=== PATIENT | female | born 1950 | race Caucasian/White ===

== ENCOUNTER → 2017-02-23 | Outpatient (CLI) | payer OTHER | LOC: MRI 08:32 | DX: M75.102 Unspecified rotator cuff tear or rupture of left shoulder, not specified as traumatic (principal); M19.012 Primary osteoarthritis, left shoulder ==

== ENCOUNTER 2019-06-28 10:27 | Day surgery (SDC) | payer OTHER ==
[~2019-06-28] VITALS: Ht 162.6 cm; Wt 81.7 kg
--- NOTE | ~2019-06-28 | O ---
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 PROCEDURE: Right endoscopic dacryocystorhinostomy with silicone intubation. SURGEON: Jose Cisneros MD. SHELL TRIM OPERATOR: None. ANESTHESIA: General. COMPLICATIONS: None. 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 She has previously undergone surgical intervention more than once, so already experienced a recurrent occlusion. She presents today for an endoscopic balloon dacryocystorhinostomy with silicone intubation. Informed consent was obtained to include, but not limited to the potential risk for loss of vision, bleeding, infection, the potential need for eventual open surgery. DESCRIPTION OF PROCEDURE: The patient was taken to the operating room where general anesthesia was administered. The right medial canthal area and the right lateral wall of the nose were then generously infiltrated with Xylocaine with epinephrine mixed with Marcaine and Wydase. The patient was subsequently prepped and draped in the usual sterile fashion. The right side of the nose had been packed preoperatively with Afrin-soaked cottonoids. The superior and inferior puncta were then dilated with a double-ended punctum dilator. A size 3 stainless steel Rae probe was then passed through the superior canaliculus down the previously created tract into the nasal vault. The cottonoids were removed from the nose and the nasal vault inspected. There was a cicatrix of [address] [address] OPERATIVE REPORT Name: JESSICACIRO Glynn Room #: 150-5 [facility]..#: [id number] Admission: 06/28/19 Attend Phys: Jose Cisneros MD Discharge: Date of : 50 Report #: [id number] mucus membrane tissue at the anterior root of the middle turbinate including the ostium. This was moved posteriorly to allow access to the ostium. The anesthetic solution at the beginning of the case was then injected with the aid of the video endoscope into the area around this to minimize subsequent bleeding. Multiple passes were then made with a size 3 Rae probe to honeycomb this tissue. They were coalesced into one large ostium. The Rae probe was removed and 5 x 8 mm balloon was lubricated and passed through the same tract. With direct visualization of the nose with the endoscope, the balloon was then inflated to 9 atmospheres for 90 seconds at each of 3 locations ensuring that the entire tract was dilated. The balloon was then vigorously aspirated and the tract subsequently irrigated with saline solution. The Aviles tubes were then passed through the superior and inferior canaliculi and retrieved in the nose with a Aviles hook and the video endoscope. The tubes were then secured to themselves with 3 square throws to the lateral wall of the nose with a 5-0 Prolene suture. The patient then received Maxitrol drops on the surface of the eye and erythromycin ointment on the tube. She was then transported to the recovery area having tolerated the procedures well with no anesthetic or operative complications being noted. By: 1347 1426 Jose Cisneros MD /nt
[~2019-06-28 10:27] MED LIST: FISH OIL 1,0001 EAC9 PO; HYDROCHLOROTH12.5 M2 PO; IRON PO; JUICE PLUS PO; OMEPRAZOLE40 MG PO; VITAMIN D310 MCG PO
[2019-06-28 11:15] VITALS: BP 146/58
[2019-06-28 11:29] LABS: CALCIUM 9.3 mg/dL (8.5-10.1); CREATININE 0.9 mg/dL (0.6-1.0); POTASSIUM 4.2 mmol/L (3.5-5.1)
--- NOTE | 2019-06-28 16:28 | EKG ---
[facility] [place] [address] ELECTROCARDIOGRAM REPORT Name: CIRO LOPEZ Room #: [facility]..#: [id number] Admission: 06/28/19 Attend Phys: Jose Cisneros MD Discharge: 06/28/19 Date of : 50 Report #: [id number] THIS REPORT FOR: cc: Pietro Ratliff MD,Derrick Carvajal MD, MD ~ THIS REPORT FOR: //name// [facility] Test Date: 2019-06-28 Test Time: 10:52:54 Pat Name: CIRO LOPEZ Department: Room: 150 5 Gender: F Hospital Coordinator: TEJAL : 1950 Requested By: Jose Cisneros Order Number: [id number] MD: Derrick Mitchell Measurements Intervals [place] Rate: 58 P: 66 AL: 144 QRS: -34 QRSD: 102 T: -4 QT: 462 QTc: 454 Interpretive Statements Sinus rhythm Left axis deviation Probable anterior infarct, age indeterminate No previous ECG available for comparison Electronically Signed On 06-28-2019 16:27:56 [employer] PRESIDENT [employer]ELOPMENT by Derrick Mitchell [email or web address] <ELECTRONICALLY SIGNED> By: Derrick Mitchell MD 06/28/19 1627 1052 1052 Derrick Mitchell MD /EPI
== END 2019-06-28 14:48 | disposition home or self-care (01) ==
LOC: TBA 10:27 → OR 10:27
PROVIDERS: Ophthalmology
DX: H04.551 Acquired stenosis of right nasolacrimal duct (principal); I10 Essential (primary) hypertension; K21.9 Gastro-esophageal reflux disease without esophagitis; Z98.890 Other specified postprocedural states; Z79.899 Other long term (current) drug therapy
CPT/HCPCS: 50010; 50101; 50386; 50398; 51777; 55343; 56528; 64037; 70005